=== PATIENT | male | born 1990 | race Two or more races ===

== ENCOUNTER 2024-09-12 17:04 | Outpatient (CLI) | payer OTHER ==
[2024-09-12 17:28] LABS: BASO % 0.5 % (0.1-1.2); EOS # 0.06 (0.04-0.54); EOS % 0.8 % (0.7-7.0); LYMPH # 2.18 (1.18-3.74); LYMPH % 28.9 % (19.3-53.1); MEAN PLATELET VOLUME 9.80 fl (9.4-12.4); MONO # 0.75 (0.24-0.82); MONO % 9.9 % (4.7-12.5); NEUT # 4.51 (1.56-6.13); NEUT % 59.8 % (34.0-71.1); RED CELL DISTRIBUTION WIDTH 12.2 % (11.6-14.4)
[2024-09-12 17:31] LABS: ERYTHROCYTE SEDIMENTATION RATE < 1 mm/hr (0-15)
== END 2024-09-12 17:14 | disposition home or self-care (01) ==
LOC: LAB 17:04
PROVIDERS: ATTEND Orthopaedic Surgery
DX: D64.9 Anemia, unspecified (principal); M06.4 Inflammatory polyarthropathy; M06.89 Other specified rheumatoid arthritis, multiple sites; M32.8 Other forms of systemic lupus erythematosus